=== PATIENT | female | born 1975 | race Caucasian/White ===

== ENCOUNTER 2017-07-30 09:27 | Inpatient (IN) | payer OTHER ==
[~2017-07-30] VITALS: Ht 162.6 cm; Wt 52.2 kg
--- NOTE | 2017-07-30 17:27 | NUR ---
PREADMISSION NOTE 42 year old female admitting to [facility] for ETOH dependence. History of anxiety, depression, cervical cancer, status post hysterectomy in 2002. Pt states she primarily drinks wine, 9 glasses or more per day, using at this level x 2 years, however, she states she has been drinking heavily x 10 years. Last drink was at 1 pm today. States she had 2 beers at 10 am and 1 glass of wine at 1 pm. No recent hospitalizations. States she was in a residential treatment center in January 2017 and [facility] 21 days. Blood pressure 135/99, pulse 109, respirations 18, oxygen saturation 95 percent. Intake to escort patient to room 317. Addendum: 07/30/17 at 1734 by DEMI VELASQUEZ RN Pt appears very anxious, tearful, a little flushed. States she gets very anxious when it has been hours since her last drink. No diaphoresis noted.
--- NOTE | 2017-07-30 17:30 | NUR ---
ADMISSION NOTE 42 year old female admitting to [facility] for ETOH dependence. History of anxiety, depression, cervical cancer, status post hysterectomy in 2002. Pt states she primarily drinks wine, 9 glasses or more per day, using at this level x 2 years, however, she states she has been drinking heavily x 10 years. Last drink was at 1 pm today. States she had 2 beers at 10 am and 1 glass of wine at 1 pm. No recent hospitalizations. States she was in a residential treatment center in January [address] [facility] 21 days. Arrived on unit at 1700. NKA. Reg diet. Full code. CIWA 5. Alert, oriented, anxious, no visible diaphoresis, denies pain, lungs clear, no edema, normal heart tones, skin intact. Skin check done. Oriented to unit. Call light within reach. Bed in low position and locked. Side rails up x 2. Will continue with admission assessment.
[2017-07-30 17:40] LABS: *URINE HCG, QUAL NEGATIVE (NEGATIVE)
[2017-07-30 17:47] LABS: *AMPHETAMINE, URINE NEGATIVE (NEGATIVE); *BARBITURATE, URINE NEGATIVE (NEGATIVE); *CANNABINOID, URINE NEGATIVE (NEGATIVE); *COCCAINE, URINE NEGATIVE (NEGATIVE); *OPIATE, URINE NEGATIVE (NEGATIVE); *PHENCYCLIDINE SCREEN,URINE NEGATIVE (NEGATIVE)
[2017-07-30 17:57] VITALS: BP 123/91
--- NOTE | 2017-07-30 18:50 | NUR ---
END OF SHIFT NOTE. 42 year old female admitting to [facility] for ETOH dependence. History of anxiety, depression, cervical cancer, status post hysterectomy in 2002. Pt states she primarily drinks wine, 9 glasses or more per day, using at this level x 2 years, however, she states she has been drinking heavily x 10 years. Last drink was at 1 pm today. States she had 2 beers at 10 am and 1 glass of wine at 1 pm. No recent hospitalizations. States she was in a residential treatment center in January 2017 and [facility] 21 days. Admission assessments done. Dr Mims interviewing patient. Report given to night RN. Call light in reach, bed in low position and locked, night RN to place padding on side rails, safety measures observed.
--- NOTE | 2017-07-30 19:08 | NUR ---
Start of shift note Received report from day shift nurse. Pt is a 42 yo female, A+Ox4, presenting to [facility] for ETOH dependence. Pt has NKA, is on Full Code status, and on Regular diet. Pt is on Fall and Seizure precautions. Pt has HX of Anxiety, Depression, Cervical cancer and Hysterectomy. Pt on 5 day Ativan taper to start in AM. No s/s of distress noted at this time. Respirations even and unlabored. Will continue to monitor.
[2017-07-30] MEDS ORDERED: ONDANSETRON 4 MG/2 ML VIAL IM PRN (19:15)
[2017-07-30] MEDS ORDERED: LORAZEPAM 2 MG/1 ML VIAL IM PRN (19:15)
[2017-07-30] MEDS ORDERED: CLONIDINE HCL 0.1 MG TABLET PO PRN (19:15)
[2017-07-30] MEDS ORDERED: ONDANSETRON ODT 4 MG TAB.RAPDIS SL PRN (19:15)
[2017-07-30] MEDS ORDERED: THIAMINE HCL 200 MG/2 ML VIAL IM ONE (19:15)
[2017-07-30] MEDS ORDERED: LORAZEPAM 1 MG TABLET PO PRN ×2 (19:15)
[2017-07-30] MEDS ORDERED: IBUPROFEN 400 MG TABLET PO PRN (19:15)
[2017-07-30] MEDS ORDERED: MAGNESIUM HYDROXIDE 30 ML LIQUID UDC PO PRN (19:15)
[2017-07-30] MEDS ORDERED: diphenhydrAMINE 50 MG CAPSULE PO PRN (19:15)
[2017-07-30] MEDS ORDERED: LOPERAMIDE HCL 2 MG CAPSULE PO PRN ×2 (19:15)
[2017-07-30] MEDS ORDERED: MAG HYDROX/AL HYDROX/SIMETH 30 ML LIQUID UDC PO PRN (19:15)
[2017-07-30] MEDS ORDERED: ACETAMINOPHEN 325 MG TABLET PO PRN (19:15)
[2017-07-30] MEDS ORDERED: MIRALAX 17 GM POWD.PACK PO PRN (19:15)
[2017-07-30] MEDS ORDERED: CRAN450T9 PO (19:39)
[2017-07-30 20:00] VITALS: BP 128/81
[2017-07-30] MEDS ORDERED: LORAZEPAM 1 MG TABLET PO ONE (21:00)
[2017-07-30 21:07] LABS: BASOPHILS % (AUTO) 0.2 % (0.0-2.0); EOSINOPHILS % (AUTO) 0.6 % (0.0-7.0); HEMATOCRIT 39.6 % (37-47); HEMOGLOBIN 13.2 G/DL (12.0-16.0); LYMPHOCYTES % (AUTO) 32.2 % (20.5-51.5); MEAN CORPUSCULAR HEMOGLOBIN 34.3 UUG (27.0-31.0); MEAN CORPUSCULAR HGB CONC 33 g/dL (32.0-37.0); MEAN CORPUSCULAR VOLUME 103.3 FL (81.0-99.0); MONOCYTES # (AUTO) 0.6 K/UL (0.1-1.30); MONOCYTES % (AUTO) 9.6 % (0.0-11.0); NEUTROPHILS # (AUTO) 3.6 K/UL (1.8-8.9); NEUTROPHILS % (AUTO) 57.4 % (38.5-71.5); PLATELET COUNT (AUTO) 336 K/UL (150-450); RED BLOOD CELL COUNT(AUTO) 3.83 MIL/UL (4.2-5.4); WHITE BLOOD COUNT (AUTO) 6.2 K/UL (4.0-11.2)
[2017-07-30 21:22] LABS: BILIRUBIN,TOTAL 0.6 mg/dL (0.2-1.0); CREATININE 0.9 mg/dL (0.6-1.3); MAGNESIUM 1.9 mg/dL (1.8-2.4); POTASSIUM 3.5 mmol/L (3.5-5.1); TOTAL PROTEIN, SERUM 7.3 g/dL (6.4-8.2)
[2017-07-31 00:05] VITALS: BP 108/70
--- NOTE | 2017-07-31 00:10 | NUR ---
CIWA DEFERRED CIWA deferred at this time, patient is asleep. Patient's breathing is even and unlabored, will continue to monitor.
[2017-07-31 04:05] VITALS: BP 132/87
--- NOTE | 2017-07-31 04:05 | NUR ---
CIWA DEFERRED CIWA deferred at this time, patient is asleep. Patient's breathing is even and unlabored, will continue to monitor.
--- NOTE | 2017-07-31 06:50 | NUR ---
End of shift note Pt is a 42 yo female, A+Ox4, presenting to [facility] for ETOH dependence. Pt has NKA, is on Full Code status, and on Regular diet. Pt is on Fall and Seizure precautions. Pt has HX of Anxiety, Depression, Cervical cancer and Hysterectomy. Pt is on 5 day Ativan taper to start in AM. Pt slept for a total of 7 HRS. Last CIWA: 3 @1999. No s/s of distress noted at this time. Respirations even and unlabored. Will endorse to day shift nurse.
--- NOTE | 2017-07-31 07:37 | NUR ---
START OF SHIFT Pt is a 42 yr old female, AA&Ox3. Pt was admitted on 07/30/17 for ETOH dependence and is on 5 day Ativan taper, starting today on 07/31/17. Received report from night coordinator nurse. Pt did not receive any PRN's during the night. Pt slept for 7 hrs. Last CIWA score was 3 at 1999. Pt is currently in bed resting with respirations even and unlabored. No acute distress noted. Skin is intact, warm and dry to touch. Safety precautions observed. bed kept in low position and locked with side rails up. Call light is within reach. Will continue to monitor.
[2017-07-31 08:12] VITALS: BP 142/92
[2017-07-31] MEDS: THIAMINE HCL 100 MG TABLET PO SCH (08:28)
[2017-07-31] MEDS: FOLIC ACID 1 MG TABLET PO SCH (08:28)
[2017-07-31] MEDS: LORAZEPAM 1 MG TABLET PO SCH ×4 (08:28→21:41)
[2017-07-31] MEDS: MULTIVITAMINS,THERAPEUTIC TABLET PO SCH (08:28)
[2017-07-31] MEDS ORDERED: PNEUMOCOCCAL 23-VAL P-SAC VAC 0.5 ML VIAL IM ONE (09:00)
[2017-07-31] MEDS ORDERED: TUBERCULIN,PURIF.PROT.DERIV. 5 TU/0.1 ML TEST ID ONE (09:00)
[2017-07-31 12:00] VITALS: BP 138/97
[2017-07-31 16:00] VITALS: BP 133/99
--- NOTE | 2017-07-31 17:15 | NUR ---
PRN GIVEN Pt c/o headache 02/15. Motrin 400mg PO PRN was given,. Encouraged increase fluid intake. Will continue to monitor.
--- NOTE | 2017-07-31 18:15 | NUR ---
PRN RE-ASSESSMENT Motrin PRN was effective. Pt state of headache 12/18. Encouraged increase fluids
[2017-07-31] MEDS ORDERED: LORAZEPAM 1 MG TABLET PO SCH (19:00)
--- NOTE | 2017-07-31 19:00 | NUR ---
END OF SHIFT Pt is a 42 yr old female, AA&Ox3. Pt was admitted on 07/30/17 for ETOH dependence and started on 5 day Ativan taper. Pt has been cooperative with care and medication regimen. Pt di not attend group sessions d/t withdrawal. Pt received Motrin PRN for headache. medication was effective. Last CIWA score was 9 at 1600. Skin is intact, warm and moist to touch. Fine tremors are observed. Encouraged pt to drink plenty of fluids for hydration. Safety precautions observed. bed kept in low position and locked with side rails up. Call light is within reach. Endorse to cold header nurse to continue with care.
--- NOTE | 2017-07-31 19:30 | NUR ---
START OF SHIFT Pt is a 42 yr old female, A/A&Ox3. Pt was admitted on 07/30/17 for ETOH dependency and is on 5 day Ativan taper. Pt has been cooperative with care and medication regimen. Per report,Pt did not attend group sessions d/t withdrawal. Last CIWA score was 9 at 1600. Skin is intact, warm and moist to touch. Encouraged pt to drink plenty of fluids for hydration.Pt c/o abdominal cramps. Safety precautions observed. bed kept in low position and locked with side rails up. Call light is within reach. Will continue to monitor for safety.
[2017-07-31] MEDS: FAMOTIDINE 20 MG TABLET PO SCH (19:54)
[2017-07-31] MEDS: DICYCLOMINE HCL 20 MG TABLET PO PRN ×2 (19:54→19:57)
[2017-07-31 20:00] VITALS: BP 128/81
--- NOTE | 2017-07-31 20:00 | NUR ---
PRN BENTYL GIVEN FOR C/O ABDOMINAL CRAMPS ORDERED.WILL MONITOR FOR EFFECTIVENESS.
[2017-07-31] MEDS ORDERED: DICYCLOMINE HCL 20 MG TABLET ONE (20:06)
[2017-07-31] MEDS ORDERED: FAMOTIDINE 20 MG TABLET ONE (20:06)
--- NOTE | 2017-07-31 20:20 | NUR ---
RN note IV insertion Inserted IV on the Right Hand #22 per MD order, patent and intact, saline flush done, no resistance noted. IV access secured.
--- NOTE | 2017-07-31 21:00 | NUR ---
PRN F/U PT VERBALIZES "FEELING BETTER".PRN EFFECTIVE.
[2017-07-31] MEDS: IV D5 1/2 NS 1000 ML 1,000 ML IV PRN (21:29)
--- NOTE | 2017-07-31 21:30 | NUR ---
IV FLUIDS PT STARTED ON IV FLUID D5-1/2 NS SOLUTION 1000MLS @ 125MLS/HOUR ON RIGHT HAND GAUZE 22.IV IS INTACT,INFUSING WELL. PT TOLERATING WELL.B/P=125/71,T=98.3,HR=79,R=17,O2 SAT=97%.NO C/O PAIN OR DISTRESS NOTED.WILL CONTINUE TO MONITOR.
[2017-07-31] MEDS: GABAPENTIN 300 MG CAPSULE PO SCH (21:42)
[2017-08-01] VITALS: BP 110/82
[2017-08-01 04:00] VITALS: BP 127/84
[2017-08-01] MEDS: IV D5 1/2 NS 1000 ML 1,000 ML IV PRN (05:33)
--- NOTE | 2017-08-01 05:33 | NUR ---
IV FLUIDS PT CONTINUES ON IV FLUID D5-1/2 NS SOLUTION 1000MLS @ 125MLS/HOUR ON RIGHT HAND GAUZE 22.IV IS INTACT AND PATENT,INFUSING WELL,NEW BAG STARTED.
--- NOTE | 2017-08-01 06:44 | NUR ---
END OF SHIFT Pt is a 42 yr old female, A/A&Ox3. Pt was admitted on 07/30/17 for ETOH dependency and is on 5 day Ativan taper. Pt has been cooperative with care and medication regimen. Skin is intact. Pt started on IV fluids last night for hydration,as ordered,infusing D5-1/2 NS Solution @ 125 mls/hr on right hand,gauze 22.IV is patent and intact.New bag of IV fluid started at 0533.Pt is tolerating well.V/S have been stable.Pt c/o abdominal cramps,PRN Bentyl was given with good effect. Pt slept 11 hrs,oral fluid intake was 1020 mls plus 1000 mls of NS via IV,voided x 1 . Last CIWA=3. Safety precautions observed. bed kept in low position and locked with side rails up. Call light is within reach,will continue to monitor.
--- NOTE | 2017-08-01 07:30 | NUR ---
START OF SHIFT Pt is a 42 yr old female, AA&Ox3. Pt was admitted on 07/30/17 for ETOH dependence and is on 5 day Ativan taper. Received report from export administrator nurse.. Pt slept for 9 hrs. Last CIWA score was 3 at 1999. Pt is currently on IVF for hydration. IV site is on left hand and intact. Pt is currently in bed resting with respirations even and unlabored. Pt is observed with facial redness. Skin is intact, warm and dry to touch. Fine tremor are observed. Pt denies any pain. Safety precautions observed. Bed kept in low position and locked with side rails up. Call light is within reach. Will continue to monitor.
[2017-08-01 08:00] VITALS: BP 121/91
[2017-08-01] MEDS: GABAPENTIN 300 MG CAPSULE PO SCH ×3 (09:06→21:01)
[2017-08-01] MEDS: MULTIVITAMINS,THERAPEUTIC TABLET PO SCH (09:06)
[2017-08-01] MEDS: FOLIC ACID 1 MG TABLET PO SCH (09:06)
[2017-08-01] MEDS: THIAMINE HCL 100 MG TABLET PO SCH (09:06)
[2017-08-01] MEDS: LORAZEPAM 1 MG TABLET PO SCH ×3 (09:07→21:02)
[2017-08-01] MEDS: FAMOTIDINE 20 MG TABLET PO SCH (09:07)
--- NOTE | 2017-08-01 11:06 | NUR ---
IV HELD Discussed with Dr. Mims in regards to IVF. Per okay to hold for now if pt is able to drink fluids. Pt has been observed drinking multiple of bottle of chaudhari. Pt denies any n/v. IVF is on hold at this time. Will continue to monitor.
[2017-08-01 12:00] VITALS: BP 134/98
[2017-08-01 12:06] LABS: HEPATITIS B SURFACE AG Negative (Negative)
[2017-08-01] MEDS ORDERED: LORAZEPAM 1 MG TABLET PO PRN ×2 (14:15)
--- NOTE | 2017-08-01 14:51 | NUR ---
Therapist prompted client about group times. Client stated she will try to attend tomorrow when she feels better.
--- NOTE | 2017-08-01 15:00 | NUR ---
MEDICATION REFUSED Pt refused to take Ativan 2mg PO and Neurontin 300mg PO as scheduled at 1500. Pt states the medication has been causing her to feel too sedative. Dr. Mims was made aware with NNO. Will continue to monitor.
[2017-08-01 16:00] VITALS: BP 130/96
--- NOTE | 2017-08-01 19:10 | NUR ---
END OF SHIFT Pt is a 42 yr old female, AA&Ox3. Pt was admitted on 07/30/17 for ETOH dependence and is on 5 day Ativan taper. Pt refused to take Ativan and Neurontin at 1500. Pt states medication was causing her to be too sedative. Dr. Mims was made aware. Pt did not attend any group sessions d/t withdrawal. IV was removed per MD. Last CIWA score was 4 at 1600. Skin is intact, warm and moist to touch. Fine tremors are observed. Encouraged pt to drink plenty of fluids for hydration. Safety precautions observed. Bed kept in low position and locked with side rails up. Call light is within reach. Endorse to punch press operator helper nurse to continue with care.
--- NOTE | 2017-08-01 19:30 | NUR ---
START OF SHIFT Pt is a 42 yr old female, A/A/O x 3. Pt was admitted on 07/30/17 for ETOH dependence and is on 5 day Ativan taper. Per report,Pt refused to take Ativan and Neurontin at 1500. Pt states medication was causing her to be too sedative. Dr. Mims was made aware. Pt did not attend any group sessions d/t withdrawal. IV was removed per MD. Last CIWA score was 4 at 1600. Pt received resting in bed,pleasant on approach,said "I have started feeling normal again,just a little tired". Pt denies any c/o N/V/D.Breathing is even and unlabored.Skin is intact, warm and moist to touch.PO fluids encouraged as tolerated.Safety precautions observed. Bed is in low position and locked with side rails up. Call light is within reach.Will continue to monitor.
[2017-08-01 20:00] VITALS: BP 125/91
[2017-08-02] VITALS: BP 104/78
[2017-08-02 04:00] VITALS: BP 109/78
--- NOTE | 2017-08-02 06:43 | NUR ---
END OF SHIFT Pt is a 42 yr old female, A/A/O x 3. Pt was admitted on 07/30/17 for ETOH dependence and is on 5 day Ativan taper and is tolerating well. Last CIWA score was 2 at 0400. Breathing is even and unlabored.Skin is intact, warm and moist to touch.PO fluids encouraged as tolerated.No PRN meds given,Pt slept 9 hrs,fluid intake was 1084 mlS,voided x 3 .Safety precautions observed. Bed is in low position and locked with side rails up. Call light is within reach.Will continue to monitor. .
--- NOTE | 2017-08-02 07:20 | NUR ---
START OF SHIFT Pt is a 42 yr old female, AA&Ox3. Pt was admitted on 07/30/17 for ETOH dependence and is on 5 day Ativan taper. Received report from hourly shift nurse. Pt slept for 9 hrs. Last CIWA score was 2 at 0400. Pt is currently in bed resting with respirations even and unlabored. No acute distress noted. Skin is intact, warm and dry to touch. No tremors seen or felt. Pt denies any n/v. Pt denies any pain. Safety precautions observed. Bed kept in low position and locked with side rails up. Call light is within reach. Will continue to monitor.
[2017-08-02 08:00] VITALS: BP 102/67
[2017-08-02] MEDS ORDERED: LORAZEPAM 1 MG TABLET PO SCH (09:00)
[2017-08-02] MEDS: MULTIVITAMINS,THERAPEUTIC TABLET PO SCH (09:01)
[2017-08-02] MEDS: FOLIC ACID 1 MG TABLET PO SCH (09:01)
[2017-08-02] MEDS: FAMOTIDINE 20 MG TABLET PO SCH (09:01)
[2017-08-02] MEDS: GABAPENTIN 300 MG CAPSULE PO SCH ×2 (09:01→21:11)
[2017-08-02] MEDS: THIAMINE HCL 100 MG TABLET PO SCH (09:01)
[2017-08-02 12:00] VITALS: BP 133/92
[2017-08-02] MEDS: LORAZEPAM 1 MG TABLET PO SCH ×2 (14:46→21:11)
--- NOTE | 2017-08-02 14:47 | NUR ---
MEDICATION REFUSED Pt refused to take Ativan 1mg PO as scheduled at 1500. Pt states, "It makes me feel worse, then better". Dr. Mims is made aware. Will continue to monitor.
[2017-08-02 16:00] VITALS: BP 133/98
--- NOTE | 2017-08-02 18:51 | NUR ---
END OF SHIFT Pt is a 42 yr old female, AA&Ox4. Pt was admitted on 07/30/17 for ETOH dependence and Ativan taper was reduced to 4 days due to increase sedation. Pt refused to take Ativan at 1500 as ordered due to increase sedation. Md was made aware. Pt was encouraged to attend group sessions but pt refused to attend. Last CIWA score was 1 at 1600. Skin is intact, warm and dry to touch. No tremors seen or felt. Pt denies any n/v or headache. Encouraged pt to drink plenty of fluids for hydration. Safety precautions observed. Call light is within reach.
--- NOTE | 2017-08-02 19:15 | NUR ---
START OF SHIFT Received 42 year old male patient admitted on 07/30/17 for ETOH dependency. Pt is full code with NKA. She reports a PMHX of anxiety, depression, cervical cancer and s/p hysterectomy in 2002. She reports drinking Wine 9 glasses daily for 2 years. Last dose was 2 beers and 1 glass of wine on 07/30/17. She denies any seizures. She is currently receiving 4 day Ativan taper and tolerating well. Per endorsement, pt did not receive or request PRN medications. Pt is alert and oriented x4, breathing is even and unlabored. Safety measures in place. Will monitor.
[2017-08-02 20:00] VITALS: BP 113/77
[2017-08-03] VITALS: BP 105/68
--- NOTE | 2017-08-03 | NUR ---
CIWA DEFERRED CIWA deferred d/t pt lying in bed with eyes closed noted to be asleep. Respirations 16, breathing is even and unlabored. Safety measures in place. Will monitor.
--- NOTE | 2017-08-03 04:00 | NUR ---
VITALS REFUSED/ CIWA DEFERRED 0400 vitals refused. CIWA deferred d/t pt lying in bed with eyes closed noted to be asleep. Respirations 16, breathing is even and unlabored. Safety measures in place. Will continue to monitor.
--- NOTE | 2017-08-03 07:07 | NUR ---
END OF SHIFT Pt is a 42 year old male patient admitted on 07/30/17 for ETOH dependency. Pt is full code with NKA. She reports a PMHX of anxiety, depression, cervical cancer and s/p hysterectomy in 2002. She continues on a 4 day Ativan taper and tolerating well. She did not receive or request PRN medications. She slept a total of 7hrs, Intake: 1200mL, Void: x2, BM:0, CIWA:1. Pt remains alert and oriented x4, breathing is even and unlabored. Safety measures in place. Endorsed to oncoming shift.
[2017-08-03 08:00] VITALS: BP 126/91
--- NOTE | 2017-08-03 08:00 | NUR ---
START OF SHIFT NOTE Received report from night nurse, 42 year old male patient admitted for ETOH dependence. Pt reported reports a PMH of anxiety, depression, cervical cancer and s/p hysterectomy in 2002. Pt cont on a 4 day Ativan taper. Per endorsement pt were not given any PRN, last CIWA-1, slept for 7 hours. Pt received in bed awake, alert and oriented x4, Skin intact warm and dry to touch. Pt educated regarding plan of care for the day with good verbal understanding. Safety measures in place, call light kept with in reach, will continue to monitor.
[2017-08-03] MEDS: FAMOTIDINE 20 MG TABLET PO SCH (08:17)
[2017-08-03] MEDS: THIAMINE HCL 100 MG TABLET PO SCH (08:17)
[2017-08-03] MEDS: MULTIVITAMINS,THERAPEUTIC TABLET PO SCH (08:17)
[2017-08-03] MEDS: FOLIC ACID 1 MG TABLET PO SCH (08:17)
[2017-08-03] MEDS: GABAPENTIN 300 MG CAPSULE PO SCH ×2 (08:17→21:29)
[2017-08-03] MEDS ORDERED: LORAZEPAM 1 MG TABLET PO SCH ×2 (09:00)
[2017-08-03 12:00] VITALS: BP 144/81
[2017-08-03 16:00] VITALS: BP 130/91
--- NOTE | 2017-08-03 19:08 | NUR ---
END OF SHIFT NOTE Pt completed her Ativan taper tolerated well. No PRN'S given during shift. Vital signs WNL. Pt attended some groups and activities. Pt set for discharge tomorrow. Last CIWA score was-2. Pt remained compliant with medication and treatment plan. Encouraged Po fluids as tolerated. All needs attended. Pt endorsed to night nurse in stable condition.
[2017-08-03 20:00] VITALS: BP 121/85
--- NOTE | 2017-08-03 20:00 | NUR ---
START OF SHIFT NOTE Received 42 year old male patient admitted for ETOH dependence. Px reported PMH of anxiety, depression, cervical cancer and s/p hysterectomy in 2002. Px is alert and oriented x4. NKA, Regular diet and on Full code. Px is for D/C tomorrow 08/04/2017. Px requested for pills to help her for sleeping. Safety measures in place, call light kept within reach, CIWA 2. Well continue to monitor.
[2017-08-03] MEDS ORDERED: IBUP-1953 PO (20:41)
[2017-08-03] MEDS ORDERED: HYDR25CA PO (20:41)
[2017-08-03] MEDS ORDERED: THIA100T13 PO (20:41)
[2017-08-03] MEDS ORDERED: DIPH50CA37 PO (20:41)
[2017-08-03] MEDS ORDERED: FOLI1TAB16 PO (20:41)
[2017-08-03] MEDS ORDERED: MULT-24 PO (20:41)
--- NOTE | 2017-08-03 21:29 | NUR ---
PRN Clonidine and Benadryl Px requested pills to help her sleep tonight. Benadryl 50mg 1 cap and Clonidine 0.1 mg 1 tab given PO as PRN meds at around 9H. We'll continue to monitor.
[2017-08-04] VITALS: BP 103/71
[2017-08-04 04:00] VITALS: BP 96/60
--- NOTE | 2017-08-04 04:00 | NUR ---
CIWA deferred Px was sleeping at 0000 and 0400, CIWA assessment deferred, to assess if the px is awake per doctor's order. We'll continue to monitor.
--- NOTE | 2017-08-04 07:20 | NUR ---
End of Shift Notes Received 42 year old male patient admitted for ETOH dependence. Px reported reports a PMH of anxiety, depression, cervical cancer and s/p hysterectomy in 2002. Px is alert and oriented x4. Px is for D/C tomorrow 08/04/2017. Px requested pills to help her sleep tonight. Benadryl 50mg 1 cap and Clonidine 0.1 mg 1 tab given PO as PRN meds at around 2129H. Oral intake of 1,500 ml, Voided 4x, no BM. Slept for 4 hrs. Safety measures in place, call light kept within reach, CIWA 2. We'll continue to monitor.
--- NOTE | 2017-08-04 07:37 | NUR ---
START OF SHIFT NOTE: Received report from maintenance mechanic 2nd shift nurse. Pt is a 42 year old female admitted for ETOH dependence. To be discharged this AM. Pt is alert and oriented X4. Color good, skin warm and dry. Respirations even and unlabored. Safety precautions observed. Call light within reach.
--- NOTE | 2017-08-04 08:30 | NUR ---
VSS. Discharge papers and medication bag signed.
[2017-08-04] MEDS: MULTIVITAMINS,THERAPEUTIC TABLET PO SCH (08:37)
[2017-08-04] MEDS: FOLIC ACID 1 MG TABLET PO SCH (08:37)
[2017-08-04] MEDS: FAMOTIDINE 20 MG TABLET PO SCH (08:37)
[2017-08-04] MEDS: THIAMINE HCL 100 MG TABLET PO SCH (08:37)
[2017-08-04] MEDS ORDERED: LORAZEPAM 1 MG TABLET PO SCH (09:00)
--- NOTE | 2017-08-04 09:24 | NUR ---
Pt discharged in stable condition with all valuables, belongings and home medications. Denies HI/SI. To [facility] via [employer] private car.
== END 2017-08-04 09:24 | disposition other institution (70) | DRG 895 ==
LOC: SRC 16:04
PROVIDERS: ADMIT Internal Medicine; ATTEND Internal Medicine
PROC: HZ2ZZZZ Detoxification Services for Substance Abuse Treatment (ICD-10-PCS; principal; 2017-07-30)
PROC: HZ41ZZZ Group Counseling for Substance Abuse Treatment, Behavioral (ICD-10-PCS; 2017-07-31)
DX: F10.230 Alcohol dependence with withdrawal, uncomplicated (principal); I10 Essential (primary) hypertension; F10.220 Alcohol dependence with intoxication, uncomplicated; Y90.6 Blood alcohol level of 120-199 mg/100 ml; F17.210 Nicotine dependence, cigarettes, uncomplicated; F41.9 Anxiety disorder, unspecified; Z81.1 Family history of alcohol abuse and dependence; Z80.42 Family history of malignant neoplasm of prostate; Z80.0 Family history of malignant neoplasm of digestive organs
CPT/HCPCS: 36415; 70030-TC; 80307; 83735; 84703; 85025; 86580; 86592; 86705; 86803; 87340; 87806; G0480; J3411; J3490; Q0163